=== PATIENT | male | born 1965 ===

== ENCOUNTER 2019-02-01 11:00 | Outpatient (REF) | payer MEDICARE, SELFPAY ==
[2019-02-01 21:06] LABS: Bilirubin Negative (Negative); Blood Small (Negative); Clarity Clear; Glucose Negative (Negative); Ketones Negative (Negative); Leukocyte Esterase Negative (Negative); Nitrite Negative (Negative); Urobilinogen 0.2 EU/dL (Up TO 0.2); pH 6.5 (5-8)
[2019-02-01 21:07] LABS: Anion Gap 10.2 mmol/L (3-11); BUN 19 mg/dL (7-18); CO2 26.8 mmol/L (21.0-32.0); Calcium 9.5 mg/dL (8.5-10.1); Chloride 102 mmol/L (98-107); Cholesterol 219 mg/dL (50-200); Glucose 103 mg/dL (70-100); HDL Cholesterol 37 mg/dL (40-60); LDL CHOLESTEROL 151 mg/dL (<100); Potassium 4.3 mmol/L (3.5-5.1); Sodium 139 mmol/L (136-145); Triglyceride 120 mg/dL (30-150)
[2019-02-01 21:14] LABS: Bacteria Negative HPF (Negative); C & S Indicated? No; Casts Negative LPF (Negative); Crystals Negative HPF (Negative); Epithelial Cells Negative HPF (Negative); Mucus Negative (Negative); RBC 0-2 (0-2); WBC Negative HPF (0-5)
== END 2019-02-01 11:20 ==
LOC: NCHCN 11:00
PROVIDERS: PCP Physician Assistant Medical; Visit Provider Physician Assistant Medical
DX: E78.89 Other lipoprotein metabolism disorders (principal); R82.998 Other abnormal findings in urine; Z87.448 Personal history of other diseases of urinary system
CPT/HCPCS: 80048; 80061; 83721; 81003; 81015

== ENCOUNTER 2023-01-27 15:41 | Outpatient (REF) | payer MEDICARE, SELFPAY ==
--- OUTSIDE RECORDS SUMMARY | 2023-01-27 15:43 | XMS_ITS | Continuity of Care Document ---
Author Name Unknown Organization [facility] Address [address] [place] [address] Care Team Providers Care Director Of Religious Life Name Role Phone [facility], Jez Blue Primary Care Physician Encounter [facility] Date(s): 12/09/22 - 12/09/[address] [address] Discharge Disposition: Home or Self Care Attending Physician: Elizabeth Joe PA-C Admitting Physician: Elizabeth Joe PA-C Referring Physician: Elizabeth Joe PA-C Allergies, Adverse Reactions, Alerts No Known Medication Allergies Assessment and Plan Future Appointments Medications aspirin 81 mg oral tablet, chewable 81 mg = 1 tab, Oral, Daily, # 30 tab, 0 Refill(s), Pharmacy: [facility], 180, cm, 06/12/22 23:51:00 EDT, Height/Length Dosing, 88.5, kg, 06/12/22 23:51:00 EDT, Weight Dosing Start Date: 06/16/22 Status: Ordered atorvastatin 40 mg oral tablet 40 mg = 1 tab, Oral, Daily, # 30 tab, 0 Refill(s), Pharmacy: [facility], 180, cm, 06/12/22 23:51:00 EDT, Height/Length Dosing, 88.5, kg, 06/12/22 23:51:00 EDT, Weight Dosing Start Date: 06/16/22 Status: Ordered Plavix 75 mg oral tablet 75 mg = 1 tab, Oral, Daily, DO NOT REFILL, # 30 tab, 0 Refill(s), Pharmacy: [facility], 180, cm, 06/12/22 23:51:00 EDT, Height/Length Dosing, 88.5, kg, 06/12/22 23:51:00 EDT, Weight Dosing Start Date: 06/16/22 Status: Ordered Problem List Condition Confirmation Course Effective Dates Status Health St [facility]us Informant Tobacco abuse Confirmed Active Social History Social History Type Response Tobacco Current everyday tob acco user Tobacco Use:. 1.5 packs/day per day. Sex Male Patient Care team information Personnel Name: [facility], Jez Blue MD Address: Address: [address] [address]- [place]
--- OUTSIDE RECORDS SUMMARY | 2023-01-27 15:44 | XMS_ITS ---
Author Name Evangelist, Lisa Address [address], [place] [id number] Organization [facility] Address [address], [place] [id number] Care Team Providers Care Developer [employer] Name Role Phone Lisa Blanca Unavailable [phone] PROBLEMS Unknown Problems ALLERGIES No Information ENCOUNTERS Encounter Location Date Diagnosis [facility] Occupational [facility] Department [address] [place] [phone] Jan, Encounter for other administrative examinations Z02.89 [facility] Department [address] [place] [id number] Apr, Encounter for other administrative examinations Z02.89 IMMUNIZATIONS No Known Immunizations SOCIAL HISTORY Never Assessed REASON FOR REFERRAL FUNCTIONAL STATUS PLAN OF CARE VITAL SIGNS MEDICATIONS Unknown Medications PROCEDURES Procedure Date Ordered Result Body Site OCD Urine Drug Screen (collection only) February 03, 2022 OCD Urine Drug Screen (collection only) April 24, 2020 RESULTS Name Result Date Reference Range OCD URINE COLLECTION 2022-02-03 OCD URINE COLLECTION 2020-04-24 REASON FOR VISIT occ udc, OCC udc Insurance Providers Health Insurance Type Health Plan Insurance Address Health Plan Insurance Phone Health Plan Insurance Name Health Plan Coverage Dates Member ID Patient Relationship to Subscriber Patient Address Patient Phone Patient Name Patient Date of Subscriber ID Subscriber Name Subscriber Date of Group No OCD - [facility] [address] [facility] [id number] OCD - [employer] self Armaan Reid [id number] [employer] - [employer] [address] [address] [facility] [id number] OCD - [employer] [facility] Armaan Reid [id number]
[2023-01-27 20:11] LABS: HCT 45.8 % (40.0-50.0); HGB 15.2 g/dL (13.5-17.5); MCH 30.8 pg (27.0-33.0); MCHC 33.2 % (32.0-36.0); MCV 93 fL (80-95); MPV 10.2 fL (8.0-11.0); Platelet Count 309 10^3/uL (130-400); RBC 4.93 10^6/uL (4.36-5.78); RDW 12.9 % (11.8-14.1); WBC 11.45 10^3/uL (4.4-10.8)
[2023-01-27 20:27] LABS: ALT 17 U/L (16-63); Creatine Kinase 65 U/L (39-308); Glucose 108 mg/dL (74-106)
[2023-01-27 20:39] LABS: Calculated LDL 76 mg/dL (<100); Cholesterol 131 mg/dL (<200); HDL Cholesterol 34 mg/dL (40-60); Triglyceride 108 mg/dL (<150)
[2023-01-29 11:54] LABS: Hepatitis C Ab w Rflx HCV PCR Negative (Negative)
== END 2023-01-27 15:42 | disposition home or self-care (01) ==
LOC: NCHCN 15:41
PROVIDERS: PCP Physician Assistant Medical; Visit Provider Internal Medicine
DX: E78.5 Hyperlipidemia, unspecified (principal); F10.10 Alcohol abuse, uncomplicated; I65.23 Occlusion and stenosis of bilateral carotid arteries; I69.951 Hemiplegia and hemiparesis following unspecified cerebrovascular disease affecting right dominant side; Z11.59 Encounter for screening for other viral diseases
CPT/HCPCS: 80061; 82550; 82947; 85027; 86803; 84460

== ENCOUNTER 2023-12-27 15:38 | Outpatient (REF) | payer MEDICARE, SELFPAY ==
[2023-12-27 20:12] LABS: HCT 50.4 % (40.0-50.0); HGB 17.3 g/dL (13.5-17.5); MCH 31.6 pg (27.0-33.0); MCHC 34.3 % (32.0-36.0); MCV 92 fL (80-95); MPV 10.4 fL (8.0-11.0); Platelet Count 269 10^3/uL (130-400); RBC 5.47 10^6/uL (4.36-5.78); RDW 13.2 % (11.8-14.1); RDW-SD 45.1 fL; WBC 9.06 10^3/uL (4.4-10.8)
[2023-12-27 20:27] LABS: ALT 20 U/L (16-63); Calculated LDL 128 mg/dL (<100); Cholesterol 190 mg/dL (<200); Glucose 103 mg/dL (74-106); HDL Cholesterol 41 mg/dL (40-60); Triglyceride 105 mg/dL (<150)
[2023-12-27 21:00] LABS: Creatine Kinase 53 U/L (39-308)
== END 2023-12-27 15:39 | disposition home or self-care (01) ==
LOC: NCHCN 15:38
PROVIDERS: PCP Physician Assistant Medical; Visit Provider Internal Medicine
DX: E78.5 Hyperlipidemia, unspecified (principal); Z79.899 Other long term (current) drug therapy; Z51.81 Encounter for therapeutic drug level monitoring
CPT/HCPCS: 80061; 82550; 82947; 85027; 84460

== ENCOUNTER 2024-10-06 17:51 | Outpatient (REF) | payer MEDICARE, SELFPAY ==
[2024-10-06 19:01] LABS: Anion Gap 10.5 mmol/L (3-11); BUN 14 mg/dL (7-18); CO2 28.5 mmol/L (21.0-32.0); CREATININE 1.4 mg/dL (0.70-1.30); Chloride 102 mmol/L (98-107); Estimated GFR 57.18 (mL/min/1.73m2); Glucose 129 mg/dL (74-106); Sodium 141 mmol/L (136-145)
== END 2024-10-06 17:52 | disposition home or self-care (01) ==
LOC: NCHCN 17:51
PROVIDERS: PCP Physician Assistant Medical; Visit Provider Internal Medicine
DX: I21.3 ST elevation (STEMI) myocardial infarction of unspecified site (principal)
CPT/HCPCS: 80048

== ENCOUNTER 2025-04-12 18:46 | Outpatient (REF) | payer MEDICARE, SELFPAY ==
[2025-04-12 19:42] LABS: HCT 46.7 % (40.0-50.0); HGB 15.8 g/dL (13.5-17.5); MCH 30.1 pg (27.0-33.0); MCHC 33.8 % (32.0-36.0); MCV 89 fL (80-95); MPV 10.2 fL (8.0-11.0); Platelet Count 268 10^3/uL (130-400); RBC 5.25 10^6/uL (4.36-5.78); RDW 14.6 % (11.8-14.1); RDW-SD 47.5 fL; WBC 9.33 10^3/uL (4.4-10.8)
[2025-04-12 20:03] LABS: ALT 10 U/L (16-63); AST 14 U/L (15-37); Albumin 3.4 g/dL (3.4-5.0); Alkaline Phosphatase 124 U/L (46-116); Anion Gap 7.5 mmol/L (3-11); BUN 10 mg/dL (7-18); Bilirubin, Total 0.5 mg/dL (0.2-1.0); CO2 26.5 mmol/L (21.0-32.0); CREATININE 1.2 mg/dL (0.70-1.30); Calcium 8.9 mg/dL (8.5-10.1); Calculated LDL 134 mg/dL (<100); Chloride 101 mmol/L (98-107); Cholesterol 192 mg/dL (<200); Estimated GFR 68.38 (mL/min/1.73m2); Glucose 106 mg/dL (74-106); HDL Cholesterol 34 mg/dL (>or=40); Potassium 4.1 mmol/L (3.5-5.1); Sodium 135 mmol/L (136-145); Total Protein 7.7 g/dL (6.4-8.2); Triglyceride 124 mg/dL (<150)
[2025-04-13 18:52] LABS: PSA, Screening 1.4 ng/mL (<=4.5)
== END 2025-04-12 18:47 | disposition home or self-care (01) ==
LOC: NCHCN 18:46
PROVIDERS: PCP Physician Assistant Medical; Visit Provider Internal Medicine
DX: E78.5 Hyperlipidemia, unspecified (principal); R63.4 Abnormal weight loss; Z12.5 Encounter for screening for malignant neoplasm of prostate
CPT/HCPCS: 80053; 80061; 84153; 85027